=== PATIENT | female | born 1970 | race Caucasian/White ===

== ENCOUNTER 2016-05-11 02:49 | Emergency (ER) | payer OTHER ==
--- NOTE | 2016-05-11 02:56 | ED UPPER/LOWER EXTREMITY COMPL ---
History of Present Illness General Chief Complaint: General Adult Stated Complaint: RING STUCK ON FINGER Source: patient Exam Limitations: no limitations Vital Signs & Intake/Output Vital Signs & Intake/Output Vital Signs Date Time Temp Pulse Resp B/P Pulse O2 O2 Flow FiO2 Ox Delivery Rate 05/11 0257 103 22 143/91 98 Room Air Allergies Coded Allergies: No Known Allergies (05/11/16) Triage Nurses Notes Reviewed? yes Onset: Gradual Duration: hour(s): Timing: recent history Severity: moderate Pain/Injury Location: Left: 4th finger. Method of Injury: "I can't get the rings off." Modifying Factors: Worsens With: other ("I tried everything."). Associated Symptoms: swelling HPI: 45 yo woman placed her mother's two wedding bands on her left ring finger earlier today and she is unable to get them off. "I've tried everything.... soap, ky, string, wire, tape... and nothing has worked and now my finger is swollen. Past History Travel History Traveled to [place] past 21 day No Medical History Any Pertinent Medical History? see below for history Surgical History Surgical History: none Family History Hx Contributory? No Review of Systems Review of Systems Constitutional: Reports: no symptoms. EENTM: Reports: no symptoms. Respiratory: Reports: no symptoms. Cardiovascular: Reports: no symptoms. Gastrointestinal/Abdominal: Reports: no symptoms. Genitourinary: Reports: no symptoms. Musculoskeletal: Reports: no symptoms. Skin: Reports: no symptoms. Neurological/Psychological: Reports: no symptoms. Hematologic/Endocrine: Reports: no symptoms. Immunological: Reports: no symptoms. All Other Systems: Reviewed and Negative Physical Exam Physical Exam General Appearance: well developed/nourished, mild distress Head: atraumatic Ears, Nose, Throat: normal ENT inspection Neck: normal inspection Hand Left: 4th finger, left 4th digit swollen, no sign of infection. Rings unable to be removed with traction. Progress Differential Diagnosis: retained rings on left 4th digit. Plan of Care: using ring cutter, both rings were removed from left 4th digit. Rings given to patient. Departure Departure Disposition: HOME OR SELF CARE Condition: Stable Clinical Impression Primary Impression: Hx of retained foreign body fully removed Referrals: CONNIE PORTILLO MD (PCP/Family) Referred to [facility] as new patient No Departure Forms: Customer Survey General Discharge Information Comments With patient permission, using the ring cutter, both rings removed without problem.
[2016-05-11 02:57] VITALS: BP 143/91
== END 2016-05-11 04:15 ==
LOC: ERH 02:49
DX: S60.445A External constriction of left ring finger, initial encounter (principal); W49.04XA Ring or other jewelry causing external constriction, initial encounter
CPT/HCPCS: 99282